=== PATIENT | female | born 1965 | race Hispanic/Latino ===

== ENCOUNTER → 2017-04-28 | Outpatient (CLI) | payer OTHER ==
[~2017-04-28] MED LIST: AMAR1TAB OR; AMLO10TA OR; BENA5TAB OR; CATA0.1T OR; CLONIDINE PO; COLC0.6T OR; HYDR25TA6 PO; METFORMIN PO; PERC5TAB8 OR; PRED20TA OR; PRIL20CA OR; uloric
--- NOTE | 2017-04-28 13:24 | REP ---
BILATERAL MAMMOGRAM WITH DIAGNOSTIC MAMMOGRAM LEFT BREAST AND LEFT BREAST ULTRASOUND: CLINICAL HISTORY: Palpable abnormality left retroareolar region. Bilateral mammography performed in the MLO and CC projections with additional compression views of the left retroareolar region. Comparison made with prior exams most recently 03/21/2012. Breast parenchyma is predominantly fatty replaced. There is mild ill-defined fibroglandular density in the immediate left retroareolar region. I do not see a discrete mass. No clustered microcalcifications are seen. Real-time sonographic of the left retroareolar region is performed at the site of the reported palpable abnormality. This is a 9 o'clock near the nipple. Irregular hypoechoic area is seen at this location with a somewhat nodular appearance. There appear to be a few dilated ducts containing debris. I cannot exclude an underlying intraductal nodule. The area is slightly less than 1 cm in diameter. There is intraluminal blood flow with duplex Doppler evaluation within this hypoechoic tissue. IMPRESSION: ACR 4 suspicious. No significant mammographic abnormality is seen. However by ultrasound, at the site of the reported palpable abnormality near the left nipple at 9 o'clock is an irregular hypoechoic area slightly less than 1 cm in diameter. It has a somewhat nodular appearance and appears to be associated with mildly dilated ducts containing debris. Underlying intraductal nodule is not excluded. Recommend ultrasound guided biopsy. B-RADS/ACR category 4 mammogram. Suspicious abnormality - biopsy should be considered. Usually requires biopsy. This mammogram was interpreted with the aid of an FDA-approved computer-aided detection system. The patient states she/he had a clinical breast exam in 04/2017. The patient letter being requested is M4. Signed by Fletcher Phillips MD 04/28/2017 05:56 P
== END ==
LOC: M RAD 11:05
PROVIDERS: ATTEND Family Medicine
DX: N63 Unspecified lump in breast (principal)

== ENCOUNTER → 2017-05-20 | Outpatient (CLI) | payer OTHER ==
[~2017-05-20] MED LIST changes: +LIDOCAINE 1% MDV 20ML VIAL As Ordered ONE
--- NOTE | 2017-05-20 10:46 | REP ---
POST BIOPSY MAMMOGRAM LEFT BREAST: Post biopsy mammogram left breast was performed in the ML and CC projections. Patient had ultrasound guided biopsy today of a retroareolar abnormality in the left breast. A metallic clip is seen at the site of the biopsy in the left retroareolar region. Signed by Fletcher Phillips MD 05/20/2017 04:41 P
--- NOTE | 2017-05-20 12:21 | REP ---
ULTRASOUND GUIDED LEFT BREAST BIOPSY: The procedure was performed by BONITA De Leon under direct supervision of Dr. Phillips. The procedure along with its risks, benefits, and complications were discussed with the patient prior to the procedure. Informed consent was obtained both verbally and written. The patient was identified in the ultrasound suite and placed in the supine position. Ultrasound guidance was used to localize the mass. An appropriate site was chosen for needle entry and this area was marked, prepped and draped in the usual sterile fashion. A procedural "time out" was performed to ensure that the correct patient, site and procedure were being performed. 10 mL of 1% Xylocaine were used for local anesthetic. A medial approach to the target was used. The Mammotome biopsy device was advanced to the area of interest. A total of six core biopsy specimens were obtained with post-fire imaging documenting needle placement for each pass. Specimens were placed in formalin and sent to pathology for further analysis. Results pending. A biopsy marker was placed under ultrasound guidance at the site of the biopsy. Following the procedure, the wound was cleansed and compressed. Postprocedure ultrasound imaging showed a small hematoma. 30 minutes postprocedure ultrasound followup of the hematoma showed no significant enlargement. The patient tolerated the procedure well and was discharged home. Reviewed by BONITA Bingham 05/20/2017 03:51 PEdited and Signed by Fletcher Phillips MD 05/20/2017 04:40 P
== END ==
LOC: M RADPRO 08:56
PROVIDERS: ATTEND Surgery
DX: D24.2 Benign neoplasm of left breast (principal); Z79.899 Other long term (current) drug therapy
CPT/HCPCS: 19083; 88305; G0206

== ENCOUNTER → 2017-08-22 | Outpatient (CLI) | payer OTHER ==
[~2017-08-22] MED LIST changes: -LIDOCAINE 1% MDV 20ML VIAL As Ordered ONE
--- NOTE | 2017-08-22 17:29 | REP ---
DIAGNOSTIC MAMMOGRAM LEFT BREAST WITH LEFT BREAST ULTRASOUND: MLO and CC views of the left breast are performed and compared to prior studies most recently is a post-biopsy mammogram of 05/20/2017. Patient had an ultrasound guided biopsy of a nodule near the left nipple at 9 o'clock. A metallic clip is seen at that location. There is no mammographic evidence of a nodule in the left breast. No clustered microcalcifications are seen. Reported the biopsy ws benign. Real-time sonographic evaluation of the left retroareolar region demonstrates no definite nodule at 9 o'clock left breast near the nipple as was seen on the prior ultrasound of 04/28/2017. IMPRESSION: ACR 2 benign. Metallic clip is again seen near the nipple at 9 o'clock position left breast. Status-post benign biopsy. No mass is seen , mammographically or sonographically. Recommend followup bilateral mammogram in April 2018. BI-RADS/ACR category 2 mammogram. Benign finding(s). Routine annual screening mammography (for women over age 40). This mammogram was interpreted with the aid of an FDA-approved computer-aided detection system. The patient states she had a clinical breast exam in 05/2017. The patient letter being requested is M1. Signed by Fletcher Phillips MD 08/23/2017 04:55 P
== END ==
LOC: M RAD 15:51
PROVIDERS: ATTEND Surgery
DX: N63.23 Unspecified lump in the left breast, lower outer quadrant (principal)

== ENCOUNTER → 2019-12-10 | Outpatient (REF) | payer OTHER ==
[2019-12-10 18:20] LABS: ALBUMIN 3.9 GM/DL (3.2-5.2); BILIRUBIN,DIRECT 0.2 MG/DL (0.0-0.2); BILIRUBIN,TOTAL 0.6 MG/DL (0.2-1.0); TOTAL PROTEIN 9.1 GM/DL (6.4-8.2)
== END ==
LOC: M LAB REF 16:52
PROVIDERS: ATTEND Internal Medicine Nephrology
DX: R94.5 Abnormal results of liver function studies (principal)

== ENCOUNTER → 2024-09-06 | Outpatient (CLI) | payer OTHER ==
[~2024-09-06] MED LIST changes: +ALLO100T; +AMLO1TAB24; +BENA40TA84; +COLC0.6T47; +JARD1TAB; +LIDOCAINE 1% MDV 20ML VIAL As Ordered ONE; +LIPI20TA PO; +MAGN400T33
[2024-09-06 12:10] VITALS: TEMP 97.3
[2024-09-06 12:48] VITALS: BP 151/87; O2SAT 99
[2024-09-06 13:04] LABS: BASO % 0.6 % (0.0-1.0); EOS # 0.1 10^3/uL (0.0-0.5); EOS % 1.8 % (0.0-3.0); HEMATOCRIT 38.8 % (36.0-47.0); HEMOGLOBIN 12.1 g/dl (12.0-15.5); LYMPH % 42.4 % (24.0-44.0); MEAN CORPUSCULAR HEMOGLOBIN 27.8 pg (27.0-33.0); MEAN CORPUSCULAR HGB CONC 31.2 g/dl (32.0-36.5); MONO # 0.4 10^3/uL (0.0-0.8); MONO % 5.3 % (2.0-8.0); NEUTROPHILS # 3.5 10^3/uL (1.5-8.5); NEUTROPHILS % 49.6 % (36.0-66.0); PLATELET COUNT, AUTOMATED 175 10^3/uL (150-450); RED BLOOD COUNT 4.36 10^6/uL (4.00-5.40)
== END ==
LOC: M IRPRO 12:02
PROVIDERS: ATTEND Internal Medicine Medical Oncology
DX: R79.9 Abnormal finding of blood chemistry, unspecified (principal)

== ENCOUNTER → 2024-10-05 | Outpatient (CLI) | payer OTHER ==
[~2024-10-05] MED LIST changes: -LIDOCAINE 1% MDV 20ML VIAL As Ordered ONE
== END ==
LOC: M RAD 10:09
PROVIDERS: ATTEND Internal Medicine Medical Oncology
DX: D47.2 Monoclonal gammopathy (principal)

== ENCOUNTER → 2024-11-19 | Outpatient (REF) | payer OTHER ==
[2024-11-19 14:00] LABS: APPEARANCE, URINE HAZY (CLEAR); BACTERIA, URINE AUTO NEGATIVE (NEGATIVE); BILIRUBIN, URINE AUTO NEGATIVE (NEGATIVE); BLOOD, URINE BLOOD 1+ (NEGATIVE); COLOR, URINE YELLOW (YELLOW); GLUCOSE, URINE (UA) AUTO 3+ mg/dL (NEGATIVE); KETONE, URINE AUTO NEGATIVE (NEGATIVE); LEUKOCYTE ESTERASE, URINE AUTO TRACE (NEGATIVE); NITRITE, URINE AUTO NEGATIVE (NEGATIVE); PROTEIN, URINE AUTO NEGATIVE (NEGATIVE); RBC, URINE AUTO 0 /HPF (0-3); SPECIFIC GRAVITY URINE AUTO 1.014 (1.002-1.035); SQUAMOUS EPITHELIAL CELL UR AU 6 /HPF (0-6); UROBILINOGEN, URINE AUTO 0.2 mg/dL (0.0-2.0); WBC, URINE AUTO 5 /HPF (0-3)
[2024-11-19 14:03] LABS: BASO % 0.6 % (0.0-1.0); EOS # 0.1 10^3/uL (0.0-0.5); EOS % 2.1 % (0.0-3.0); HEMATOCRIT 37.8 % (36.0-47.0); HEMOGLOBIN 11.9 g/dl (12.0-15.5); LYMPH # 3.1 10^3/uL (1.5-5.0); LYMPH % 45.1 % (24.0-44.0); MEAN CORPUSCULAR HEMOGLOBIN 28.7 pg (27.0-33.0); MEAN CORPUSCULAR HGB CONC 31.5 g/dl (32.0-36.5); MEAN CORPUSCULAR VOLUME 91.3 fl (80.0-96.0); MONO # 0.3 10^3/uL (0.0-0.8); NEUTROPHILS # 3.3 10^3/uL (1.5-8.5); NEUTROPHILS % 48.1 % (36.0-66.0); PLATELET COUNT, AUTOMATED 180 10^3/uL (150-450); RED BLOOD COUNT 4.14 10^6/uL (4.00-5.40); WHITE BLOOD COUNT 6.8 10^3/uL (4.0-10.0)
[2024-11-19 14:10] LABS: ERYTHROCYTE SEDIMENTATION RATE 53 mm/hr (0-30)
[2024-11-19 14:33] LABS: TOTAL PROTEIN,RANDOM URINE 12.9 MG/DL (0.0-14.0)
[2024-11-19 14:37] LABS: CREATININE,RANDOM URINE 109.4 MG/DL
[2024-11-19 14:38] LABS: C REACTIVE PROTEIN QUANTITATIV 1.15 MG/DL (<1.0)
[2024-11-19 14:39] LABS: ALBUMIN 4.3 G/DL (3.2-5.2); BILIRUBIN,TOTAL 0.4 MG/DL (0.3-1.2); CALCIUM LEVEL 9.3 MG/DL (8.3-10.6); COMPLEMENT C3 160.4 MG/DL (90.0-170.0); CREATININE FOR GFR 2.16 MG/DL (0.55-1.30); GLOMERULAR FILTRATION RATE 24.8 (>45); POTASSIUM SERUM 4.5 MMOL/L (3.5-5.1); TOTAL PROTEIN 8.8 G/DL (5.7-8.2)
[2024-11-19 14:41] LABS: COMPLEMENT C4 45.8 MG/DL (12-36)
[2024-11-23 16:57] LABS: COMPLEMENT TOTAL (CH50) > 60 U/mL (31-60)
[2024-11-26 09:02] LABS: PTT-LA 36 sec (<=40); dRVVT 40 sec (<=45)
[2024-11-26 17:52] LABS: HLA-B27 Negative (Negative)
== END ==
LOC: M SFHCRHEU 09:45
PROVIDERS: ATTEND Internal Medicine Rheumatology
DX: R76.8 Other specified abnormal immunological findings in serum (principal); M25.50 Pain in unspecified joint; E79.0 Hyperuricemia without signs of inflammatory arthritis and tophaceous disease

== ENCOUNTER → 2025-06-13 | Outpatient (REF) | payer OTHER ==
[~2025-06-13] MED LIST changes: -COLC0.6T47; +COLC0.6T53
[2025-06-13 18:53] LABS: VITAMIN B12 LEVEL 475.0 PG/ML (211-911)
== END ==
LOC: M LAB REF 16:50
PROVIDERS: ATTEND Internal Medicine Nephrology
DX: D53.1 Other megaloblastic anemias, not elsewhere classified (principal)

== ENCOUNTER → 2025-06-18 | Outpatient (CLI) | payer OTHER ==
[2025-06-18 15:31] LABS: BASO # 0.0 10^3/uL (0.0-0.2); BASO % 0.6 % (0.0-1.0); EOS # 0.1 10^3/uL (0.0-0.5); EOS % 1.2 % (0.0-3.0); LYMPH # 2.1 10^3/uL (1.5-5.0); LYMPH % 31.2 % (24.0-44.0); MONO # 0.2 10^3/uL (0.0-0.8); MONO % 3.5 % (2.0-8.0); NEUTROPHILS # 4.3 10^3/uL (1.5-8.5); NEUTROPHILS % 63.2 % (36.0-66.0); PLATELET COUNT, AUTOMATED 209 10^3/uL (150-450)
[2025-06-18 15:39] LABS: ERYTHROCYTE SEDIMENTATION RATE 59 mm/hr (0-30)
[2025-06-18 15:46] LABS: ALT/SGPT 13.0 U/L (7.0-40); AST/SGOT 19.0 U/L (<34); C REACTIVE PROTEIN QUANTITATIV 0.52 MG/DL (<1.0); CALCIUM LEVEL 9.5 MG/DL (8.3-10.6); CARBON DIOXIDE LEVEL 29.0 MMOL/L (20-31); CHLORIDE LEVEL 107.0 MMOL/L (98-107); CREATININE FOR GFR 1.98 MG/DL (0.55-1.30); GLOMERULAR FILTRATION RATE 28.2 (>45); POTASSIUM SERUM 4.2 MMOL/L (3.5-5.1); SODIUM LEVEL 143.0 MMOL/L (136-145)
== END ==
LOC: M LAB 14:41
PROVIDERS: ATTEND Internal Medicine Rheumatology
DX: R76.8 Other specified abnormal immunological findings in serum (principal); M25.50 Pain in unspecified joint; E79.0 Hyperuricemia without signs of inflammatory arthritis and tophaceous disease

== ENCOUNTER → 2025-06-19 | Outpatient (REF) | payer OTHER | LOC: M SFHCRHEU 09:18 | PROVIDERS: ATTEND Internal Medicine Rheumatology | DX: Z53.9 Procedure and treatment not carried out, unspecified reason (principal); M05.79 Rheumatoid arthritis with rheumatoid factor of multiple sites without organ or systems involvement; R76.8 Other specified abnormal immunological findings in serum; M25.50 Pain in unspecified joint; E79.0 Hyperuricemia without signs of inflammatory arthritis and tophaceous disease ==